=== PATIENT | male | born 2000 | race Hispanic/Latino ===

== ENCOUNTER 2018-04-11 20:22 | Emergency (ER) | payer OTHER ==
[~2018-04-11] VITALS: Ht 177.8 cm; Wt 105.2 kg
[2018-04-11] MEDS ORDERED: SODIUM CHLORIDE 0.9% 1000ML 1,000 ML IV ONE (21:13)
[2018-04-11] MEDS ORDERED: ONDANSETRON HCL 4 MG/2 ML VIAL ONE (21:13)
[2018-04-11 21:15] LABS: BASOPHILS % (AUTO) 2.5 % (0.0-5.0); EOSINOPHILS % (AUTO) 0.8 % (0.0-8.0); HEMATOCRIT 46.3 % (42-54); LYMPHOCYTES % (AUTO) 15.6 % (21.0-51.0); MEAN CORPUSCULAR HEMOGLOBIN 30.2 pg (27.0-33.0); MEAN CORPUSCULAR HGB CONC 34.5 g/dL (32.0-36.0); MEAN CORPUSCULAR VOLUME 87.7 fL (80-100); MONOCYTES % (AUTO) 9.2 % (3.0-13.0); NEUTROPHILS % (AUTO) 71.9 % (40.0-77.0); PLATELET COUNT (AUTO) 245 K/uL (130-400); RED BLOOD CELL COUNT(AUTO) 5.28 MIL/uL (4.50-6.20); RED CELL DISTRIBUTION WIDTH 14.1 % (11.0-15.5); WHITE BLOOD COUNT (AUTO) 12.5 K/uL (4.8-10.8)
[2018-04-11 21:27] LABS: CREATININE 0.9 mg/dL (0.5-1.5)
[2018-04-11 21:32] LABS: ALBUMIN 4.1 g/dL (3.5-5.0); BILIRUBIN,TOTAL 0.2 mg/dL (0.2-1.0); TOTAL PROTEIN, SERUM 8.3 g/dL (6.0-8.3)
[2018-04-11] MEDS ORDERED: PANTOPRAZOLE 40 MG/VIAL IVP ONE (22:00)
== END 2018-04-11 22:47 | disposition home or self-care (01) ==
LOC: EDH 20:22
DX: K29.70 Gastritis, unspecified, without bleeding (principal); R05 Cough; Z90.49 Acquired absence of other specified parts of digestive tract
CPT/HCPCS: 36415; 71045; 80053; 85025; 93005; 96361; 96374; 96375; 99285; C9113; J2405; J7030

== ENCOUNTER 2018-10-30 22:28 | Emergency (ER) | payer OTHER ==
[2018-10-30] MEDS ORDERED: IBUPROFEN 600 MG TABLET ONE (23:03)
[2018-10-30] MEDS ORDERED: ONDANSETRON ODT 4 MG TAB ONE (23:04)
[2018-10-30] MEDS ORDERED: HYDROCODONE/ACETAMINOPHEN 5/325 MG TAB ONE (23:04)
== END 2018-10-30 23:15 | disposition home or self-care (01) ==
LOC: EDH 22:28
DX: K02.9 Dental caries, unspecified (principal); Z90.49 Acquired absence of other specified parts of digestive tract; Z72.0 Tobacco use

== ENCOUNTER 2023-03-02 14:34 | Emergency (ER) | payer MEDICAID ==
[~2023-03-02] VITALS: Ht 167.6 cm; Wt 108.9 kg
[2023-03-02 14:39] VITALS: BP 150/87
[2023-03-02] MEDS ORDERED: TRAM50TA4 PO (14:51)
== END 2023-03-02 14:56 | disposition home or self-care (01) ==
LOC: EDH 14:34
DX: F41.9 Anxiety disorder, unspecified (principal)
CPT/HCPCS: 71045; 93005